=== PATIENT | male | born 1985 | race Two or more races ===

== ENCOUNTER → 2024-10-24 | Outpatient (BNVA) | payer MEDICAID, SELFPAY | END | disposition home or self-care (01) | PROVIDERS: PCP Nurse Practitioner Family; Referring Provider Nurse Practitioner Family; Visit Provider Urology | DX: N28.89 Other specified disorders of kidney and ureter (principal); N40.1 Benign prostatic hyperplasia with lower urinary tract symptoms; N13.8 Other obstructive and reflux uropathy; Z80.51 Family history of malignant neoplasm of kidney; F17.210 Nicotine dependence, cigarettes, uncomplicated | CPT/HCPCS: 81003; 99212; G0463 ==

== ENCOUNTER → 2024-10-31 | Outpatient (BNVA) | payer MEDICAID, SELFPAY | END | disposition home or self-care (01) | PROVIDERS: PCP Nurse Practitioner Family; Referring Provider Nurse Practitioner Family; Visit Provider Urology | DX: N28.89 Other specified disorders of kidney and ureter (principal); Z80.51 Family history of malignant neoplasm of kidney; F17.210 Nicotine dependence, cigarettes, uncomplicated | CPT/HCPCS: 99212; G0463 ==

== ENCOUNTER → 2024-11-27 | Outpatient (BNVA) | payer MEDICAID, SELFPAY | END | disposition home or self-care (01) | PROVIDERS: PCP Nurse Practitioner Family; Referring Provider Nurse Practitioner Family; Visit Provider Urology | DX: N40.1 Benign prostatic hyperplasia with lower urinary tract symptoms (principal); R39.12 Poor urinary stream | CPT/HCPCS: 51741; 51798 ==

== ENCOUNTER 2024-12-01 00:22 | Emergency (ER) | payer MEDICAID, SELFPAY ==
[2024-12-01 00:24] VITALS: BMI 31.4
[2024-12-01 00:37] VITALS: BP 151/88; PULSE 76; RESP 20; TEMP 37.3; O2SAT 98
--- NOTE | 2024-12-01 00:46 | PD.EDRME ---
Rapid Medical Screening Exam RME Arrival date/time: 12/01/24 00:22 39-year-old male who had a recent surgery to the right kidney for a tumor removal presents with a complaint of right flank pain that radiates to the right abdomen. Chief Complaint: Back Pain/Injury Time Seen by Provider: 12/01/24 00:41 Vital signs: Vital Signs Temperature 99.2 F 12/01/24 00:37 Pulse Rate 76 12/01/24 00:37 Respiratory Rate 20 12/01/24 00:37 Blood Pressure 151/88 H 12/01/24 00:37 Pulse Oximetry (%) 98 12/01/24 00:37 Oxygen Delivery Method Room Air 12/01/24 00:37 Pulse ox 98% room air Vital signs reviewed by provider: No RME Narrative: 39-year-old male presents to urgent care with complaint of pain to the right flank that radiates to the right abdomen. Patient is status post tumor removal from the right kidney.
--- NOTE | 2024-12-01 00:52 | XR_ITS ---
Examination: CT abdomen and pelvis without contrast. Coronal 3-D reconstructions. Sagittal 2-D reconstructions. Date and time of exam:December 01, 2024 0200 hours INDICATIONS: Onset right-sided flank pain today COMPARISON: November 01, 2022 CTDI: vol (mGy): 11.3 DLP: (mGycm): 6 Technique: Axial images of the abdomen have been obtained, 3 mm slice thickness Intravenous contrast material has not been administered. Low dose protocols were performed. One or more of the following dose reduction techniques were used; automated exposure control, adjustment of the mA and/or KV according to patient size, use of iterative reconstruction technique. Findings: No focal liver or splenic lesions No gallstones No pancreatic mass Right renal partially ruptured cyst 3.6 x 4.8 cm Right perinephric stranding Normal appendix No bowel obstruction Colonic diverticulosis Thickening of the urinary bladder wall IMPRESSION: Right renal partially ruptured cyst as above, recommend repeat study with intravenous contrast to better assess this cystic mass Cystitis pattern
[2024-12-01 01:14] LABS: Basophils % (Auto) 0 % (0-2.5); Eosinophils # (Auto) 0.2 Thou/mm3 (0.0-0.5); Eosinophils % (Auto) 1 % (0-10); Hematocrit 31.5 % (41.0-53.0); Hemoglobin 11.1 g/dL (13.5-16.0); Immature Granulocytes % (Auto) 2 % (0-0); Immature Granulocytes Auto 0.17 Thou/mm3 (0.00-0.00); Lymphocytes # (Auto) 2.4 Thou/mm3 (1.0-4.8); Lymphocytes % (Auto) 22 % (10-50); Mean Corpuscular HGB Conc 35.2 g/dl (31.0-37.0); Mean Corpuscular Hemoglobin 32.9 pg (25.0-35.0); Mean Corpuscular Volume 94 fL (80-100); Monocytes # (Auto) 1.3 Thou/mm3 (0.0-0.8); Monocytes % (Auto) 12 % (0-12); Neutrophils # (Auto) 7.1 Thou/mm3 (1.8-7.7); Neutrophils % (Auto) 64 % (37-80); Nucleated Red Blood Cell % 0 /100 WBC (0); Platelet Count 343 Thou/mm3 (140-440); RDW Standard Deviation 39.3 fL (35.1-43.9); Red Blood Count 3.37 Miln/mm3 (4.50-5.90); White Blood Count 11.1 Thou/mm3 (3.8-10.6)
[2024-12-01 01:15] LABS: Collection Type, Urine Clean Catch
[2024-12-01 01:27] LABS: Bacteria,Urine Rare; Bilirubin,Urine Negative (Negative); Blood,Urine Trace (Negative); Clarity,Urine Clear (Clear/Hazy); Color,Urine Yellow (Lt Yel-Yel); Glucose, Urine Negative (Negative); Ketones,Urine Trace (Negative); Leukocyte Esterase,Urine Negative (Negative); Nitrite,Urine Negative (Negative); Protein,Urine 1+ (Neg - Trace); RBC,Urine 9 /hpf (0-3); Specific Gravity,Urine 1.034 (1.001-1.035); Squamous Epithelial Cell,Urine 1 /hpf (0-5); WBC,Urine 6 /hpf (0-5)
[2024-12-01 01:33] LABS: Alanine Aminotransferase 77 U/L (10-49); Albumin, Serum 4.7 gm/dL (3.5-5.0); Albumin/Globulin Ratio 1.7 (1.2-2.2); Alkaline Phosphatase 174 U/L (46-116); Anion Gap 8 (7-16); Aspartate Amino Transferase 26 U/L (0-34); BUN/Creatinine Ratio 11 Ratio (12-20); Bilirubin,Total 0.3 mg/dL (0.3-1.2); Blood Urea Nitrogen 13 mg/dL (9-23); Calcium 9.5 mg/dL (8.3-10.6); Calcium (Corrected) 9.5 mg/dL (8.5-10.1); Carbon Dioxide 26.7 mMol/L (20.0-31.0); Chloride 99 mMol/L (98-107); Creatinine (Component) 1.2 mg/dL (0.6-1.3); Estimated Creatinine Clearance 90.1 mL/min (>60); Globulin 2.8 gm/dL (2.3-3.5); Glucose 133 mg/dL (74-106); Lipase 35 U/L (12-53); Osmolality,Calculated 270 (275-295); Potassium 4.4 mMol/L (3.4-5.1); Sodium 134 mMol/L (136-145); Total Protein 7.5 gm/dL (5.7-8.2); eGFR > 60 See Note
[2024-12-01 02:43] VITALS: BP 149/88; PULSE 73; RESP 18; TEMP 36.8; O2SAT 98
--- NOTE | 2024-12-01 03:30 | PC.NURSE ---
Pt present to ER with c/o R lower back pain, pt denies any trauma, but states masses was found on kidney and biopsy was performed and pending result. Pt is A/O x 3 with no c/o N/V, fever at this time.
--- NOTE | 2024-12-01 03:36 | PD.EDBACK ---
ED Back Injury Pain RME/HPI General Chief Complaint: Back Pain/Injury Stated Complaint: RIGHT BACK PAIN RADIATING TO RIGHT UPPER ABD Time Seen by Provider: 12/01/24 00:41 Arrival date/time: 12/01/24 00:22 RME / HPI RME / HPI Narrative: 39-year-old male presents to urgent care with complaint of pain to the right flank that radiates to the right abdomen. Patient is status post tumor removal from the right kidney. ---- Dr. Yusuf?s Main ED Evaluation: 39yo male presents to the ED for a chief complaint of right flank pain x 2130. Patient states he had a tumor removed from his right kidney on 11/20/24 at [facility], reporting he has a follow-up appointment with them later today at 0830. Patient states he did not have any pain after the procedure until tonight. He denies any N/V, fever, chills, sweating, dysuria or any other associated symptoms. NKA. Urologist is Dr. Mason. Related Data Home Medications ?Medication ?Instructions ?Recorded ?Confirmed ibuprofen 800 mg tablet 800 mg PO Q8H 10/24/24 11/27/24 Previous Rx's ?Medication ?Instructions ?Recorded doxycycline monohydrate 100 mg 100 mg PO BID #14 caps 12/01/24 capsule hydrocodone 5 mg-acetaminophen 325 1 tab PO Q6H PRN pain #14 tabs 12/01/24 mg tablet Allergies Allergy/AdvReac Type Severity Reaction Status Date / Time No Known Allergies Allergy Verified 12/01/24 00:23 Review of Systems Review of Systems Systems Reviewed: All systems reviewed, normal except as documented Past Medical History Past Medical History CARDIAC: Negative Cardiac Disorders or Congestive Heart Failure RESPIRATORY: Negative Chronic Obstructive Pulmonary Disease (COPD) GENITOURINARY: Negative Renal Disease ENDOCRINE: Negative Endocrine Disorders, Diabetes Mellitus Type 1 or Diabetes Mellitus Type 2 Social History SMOKING STATUS: Current some day smoker ED Exam Narrative Physical exam: GENERAL APPEARANCE: alert and oriented x 4, well-developed, well-nourished, no acute distress VITALS: All vitals were reviewed and the pulse ox is 98% on room air, which is normal according to my interpretation. HEENT: Normocephalic, atraumatic; pupils equal, round, reactive to light; EOMI; mucous membranes pink, moist; oropharynx clear NECK: Supple LUNGS: CTABL; no wheezes, no rales, no rhonchi HEART: Regular rate, regular rhythm; normal S1, S2; no murmurs ABDOMEN: non distended; normal BS; soft, no tenderness, no guarding, no rebound; no masses, no organomegaly, no hernia BACK: moderate right CVA tenderness EXTREMITIES: atraumatic; no edema NEUROLOGIC: awake; alert and oriented x4; cranial nerves II-XII grossly intact; no focal sensory or motor deficits PSYCHIATRIC: appropriate mood and affect SKIN: warm, dry, normal color; no rashes Course Quality Measures none Orders Category Date Time Status CT abdomen pelvis wo con Stat Exams 12/01/24 00:52 Taken CBC Stat Lab 12/01/24 00:51 Completed Comprehensive Metabolic Panel Stat Lab 12/01/24 00:51 Completed Lipase Stat Lab 12/01/24 00:51 Completed Urinalysis Stat Lab 12/01/24 01:12 Completed Vital Signs Vital signs: Vital Signs Temperature 99.2 F 12/01/24 00:37 Pulse Rate 76 12/01/24 00:37 Respiratory Rate 20 12/01/24 00:37 Blood Pressure 151/88 H 12/01/24 00:37 Pulse Oximetry (%) 98 12/01/24 00:37 Oxygen Delivery Method Room Air 12/01/24 00:37 Back Pain / Injury MDM Narrative MDM Narrative:: Scribe Attestation: 12/01/24 - Neela Yarbrough am scribing for and in the presence of Dr. Yusuf. Patient is not febile at this time and is not complaining of any pain. Patient does have an appointment with his urologist, Dr. Mason at 0830 this morning. Patient is stable to be discharged home. Patient data External records reviewed:: [facility] previous records (Per chart review, patient has no relevant previous ED visits or admissions to this facility.) Clinical information provided by:: patient Social determinants that could affect healthcare access:: none Patient has the following chronic illnesses:: none How is presenting disease/condition affected by chronic disease/condition?: no chronic disease Evaluation data The following diagnostics were reviewed and interpreted by me:: lab results and radiology exam(s) Lab and/or radiology exams considered but not ordered:: none Interpretation Summary: WBC 11.1, Lipase is normal, UA is positive for a UTI, according to my interpretation. ----- [employer] Preliminary Report Draft Patient: SHANTEL GATES Record#: [id number] Birthdate: 1985 Age/Sex: 39 / M Location: [facility] Attending Dr: Ordering Physician: Date of Service: Procedure(s): Accession Number(s): cc: ~ CT scan of the abdomen and pelvis without intravenous contrast (axial sections with sagittal and coronal reformats) December 01, 2024 0200 hours Clinical History: right flank pain No prior study is available for comparison. Findings: Bibasilar streaky atelectasis is present. Small hypodense lesion is noted in the liver, too small to characterize (axial image 70/295). The gallbladder is distended. Multiloculated fluid collection with air loculi and linear hyperdensities within is seen at the anterior surface of right kidney indenting liver, measuring 3.6 x 3.5 x 5.4 cm (axial image 81/295). Right perinephric fat stranding. The pancreas, spleen, left kidney and adrenals are unremarkable on this noncontrast study. No evidence of bowel obstruction. The appendix is within normal limits (axial image 138/295). There are prominent retroperitoneal lymph nodes. The urinary bladder is unremarkable. There is no free air. Mild degenerative changes are identified in the spine. Impression: Findings suggestive of right renal cyst rupture with abscess formation. Recommend clinical correlation and follow-up. Other findings as described above. Report Electronically Signed By: Brett Hair 12/01/2024 3:44:10 AM Medications / Prescriptions Medications or Prescriptions considered but not ordered:: none Medication administrations:: see above Consultations Consultation(s) initiated? (list below): No Diagnosis Differential diagnosis back pain/injury: pyelonephritis and other (postsurgical abscess, postsurgical hemorrhage) Most likely diagnosis given after review of the tests above:: see clinical impression below Admission Indicated Admission indicated?: not indicated Admission Request Was there a request for admission?: No Disposition Plan Disposition Plan: Discharge Discharge Attestation Discharge Attestation: The patient and all family members were given an opportunity to ask questions and understood the discharge instructions. Discharge instructions specifically effects, indications for sooner follow up or return to the emergency department, and the expected course of current diagnosis. Patient condition: Stable Discharge Plan Plan Patient Disposition: HOME (Self Care) Discharge Disposition comment: Stable for discharge home Patient condition on transfer: Stable Prescriptions/Referrals Prescriptions/Med Rec: New doxycycline monohydrate 100 mg capsule 100 mg PO BID Qty: 14 0RF hydrocodone-acetaminophen 5-325 mg tablet 1 tab PO Q6H MDD 4 tabs PRN (Reason: pain) Qty: 14 0RF No Action ibuprofen 800 mg tablet 800 mg PO Q8H Referrals: Narda Mason MD [Physician] - In 1 week Problem List Clinical Impression: Acute postoperative pain Patient/Caregiver Discharge Instructions Discharge Activity: activity as tolerated Education Materials: Managing Post-Op Pain at Home, ED Bladder Infection, Male (Adult) Additional Instructions: It is very important that you keep your appointment with Dr. Mason today at 8:30 AM. Please bring these discharge instructions with you as well as your CAT scan report. Please let him know that you were seen in the emergency department last night. Your urine shows minimal evidence of a urinary tract infection. The CAT scan is being read as showing a possible postsurgical abscess. I have ordered doxycycline which is an antibiotic and it will be waiting for you at your pharmacy. You should take 1 tab twice per day for the full 7 days. I have also called in a prescription for hydrocodone with acetaminophen. This is a pain medication. You cannot drive or operate heavy machinery after taking this medication. Please return to the ER if you have any worsening or any further medical problems Print Language: Lao Stand Alone Forms: [employer] Award Info., Patient Portal Info Letter
--- NOTE | 2024-12-01 03:44 | PRELIM_ITS ---
CT scan of the abdomen and pelvis without intravenous contrast (axial sections with sagittal and coronal reformats) December 01, 2024 0200 hours Clinical History: right flank pain No prior study is available for comparison. Findings: Bibasilar streaky atelectasis is present. Small hypodense lesion is noted in the liver, too small to characterize (axial image 70/295). The gallbladder is distended. Multiloculated fluid collection with air loculi and linear hyperdensities within is seen at the anterior surface of right kidney indenting liver, measuring 3.6 x 3.5 x 5.4 cm (axial image 81/295). Right perinephric fat stranding. The pancreas, spleen, left kidney and adrenals are unremarkable on this noncontrast study. No evidence of bowel obstruction. The appendix is within normal limits (axial image 138/295). There are prominent retroperitoneal lymph nodes. The urinary bladder is unremarkable. There is no free air. Mild degenerative changes are identified in the spine. Impression: Findings suggestive of right renal cyst rupture with abscess formation. Recommend clinical correlation and follow-up. Other findings as described above. Report Electronically Signed By: Brett Hair 12/01/2024 3:44:10 AM [EST]
[2024-12-01 04:03] VITALS: BP 120/76; PULSE 74; RESP 20; TEMP 36.8; O2SAT 97
== END 2024-12-01 04:16 | disposition home or self-care (01) ==
PROVIDERS: Physician Assistant; Emergency Provider Emergency Medicine
DX: G89.18 Other acute postprocedural pain (principal)
CPT/HCPCS: 36415; 74176; 80053; 81001; 83690; 85025; 99284

== ENCOUNTER → 2024-12-01 | Outpatient (BNVA) | payer MEDICAID, SELFPAY | END | disposition home or self-care (01) | PROVIDERS: PCP Nurse Practitioner Family; Referring Provider Nurse Practitioner Family; Visit Provider Urology | DX: N40.1 Benign prostatic hyperplasia with lower urinary tract symptoms (principal); N13.8 Other obstructive and reflux uropathy; C64.1 Malignant neoplasm of right kidney, except renal pelvis; Z90.5 Acquired absence of kidney; F17.210 Nicotine dependence, cigarettes, uncomplicated | CPT/HCPCS: 81003; 99212; G0463 ==

== ENCOUNTER → 2024-12-22 | Outpatient (BNVA) | payer MEDICAID, SELFPAY | END | disposition home or self-care (01) | PROVIDERS: PCP Nurse Practitioner Family; Referring Provider Nurse Practitioner Family; Visit Provider Urology | DX: N40.1 Benign prostatic hyperplasia with lower urinary tract symptoms (principal); N13.8 Other obstructive and reflux uropathy; R39.198 Other difficulties with micturition; F17.210 Nicotine dependence, cigarettes, uncomplicated | CPT/HCPCS: 76872 ==

== ENCOUNTER → 2025-01-05 | Outpatient (BNVA) | payer MEDICAID, SELFPAY | END | disposition home or self-care (01) | PROVIDERS: PCP Nurse Practitioner Family; Referring Provider Nurse Practitioner Family; Visit Provider Urology | DX: N35.914 Unspecified anterior urethral stricture, male (principal); N32.89 Other specified disorders of bladder; C64.1 Malignant neoplasm of right kidney, except renal pelvis; N40.1 Benign prostatic hyperplasia with lower urinary tract symptoms; N13.8 Other obstructive and reflux uropathy; Z90.5 Acquired absence of kidney | CPT/HCPCS: 52281; 81003; 96372; A4217; A4649; C1894; J1580; A9270 ==

== ENCOUNTER → 2025-02-25 | Outpatient (CLI) | payer MEDICAID, SELFPAY ==
--- NOTE | 2025-02-25 09:11 | XR_ITS ---
Examination: CT abdomen with intravenous contrast CT pelvis with intravenous contrast 2-D coronal reconstructions 2-D sagittal reconstructions Date and time of exam:February 25, 2025 0944 hours, comparison December 01, 2024 INDICATIONS: Diagnosis malignant neoplasm right kidney post nephrectomy November, restaging. CTDI: vol (mGy) 18.3 DLP: (mGycm) 1148 Technique: Multiple axial sections of the abdomen and pelvis have been obtained. 64 slice high-resolution scanner used. 3 mm axial sections have been obtained, post intravenous injection 60 cc [id number] 2-D sagittal, coronal reconstructions obtained. Low dose protocols were performed. One or more of the following dose reduction techniques were used; automated exposure control, adjustment of the mA and/or KV according to patient size, use of iterative reconstruction technique. Findings: 3 mm pulmonary nodule left lower lobe image 46 Fatty infiltration throughout the liver, no focal liver or splenic lesions No gallstones No pancreatic mass. Partial right nephrectomy, no definite solid enhancing lesion noted Aorta normal size Normal appendix No bowel obstruction Colonic diverticulosis, no diverticulitis Urinary bladder intact No significant prostatomegaly Osseous structures intact IMPRESSION: 3 mm pulmonary nodule left lower lobe, consider elective CT chest without contrast follow-up Partial right nephrectomy, no definite enhancing renal mass lesions recommend 3 month follow-up renal sonography
== END | disposition home or self-care (01) ==
PROVIDERS: PCP Nurse Practitioner Family; Referring Provider Urology; Visit Provider Urology
DX: R91.1 Solitary pulmonary nodule (principal); Z90.49 Acquired absence of other specified parts of digestive tract; C64.1 Malignant neoplasm of right kidney, except renal pelvis
CPT/HCPCS: 74177; A4649; Q9967

== ENCOUNTER → 2025-06-29 | Outpatient (BNVA) | payer MEDICAID, SELFPAY | END | disposition home or self-care (01) | PROVIDERS: PCP Nurse Practitioner Family; Referring Provider Nurse Practitioner Family; Visit Provider Urology | DX: N40.1 Benign prostatic hyperplasia with lower urinary tract symptoms (principal); N13.8 Other obstructive and reflux uropathy; C64.1 Malignant neoplasm of right kidney, except renal pelvis; Z90.5 Acquired absence of kidney; Z87.891 Personal history of nicotine dependence | CPT/HCPCS: 81003; 99212; 99213; G0463 ==